=== PATIENT | female | born 1995 | race African-American/Black ===

== ENCOUNTER 2020-01-10 20:47 | Emergency (ER) | payer SELFPAY ==
--- OUTSIDE RECORDS SUMMARY | 2020-01-10 20:49 | XMS REPORT ---
:1995 Author Organization [facility] t Address [address] [place] [address] Care Team Providers Name Role Phone Jimmy GEORGE, Braulio Attending Clinician Problems This patient has no known problems. Allergies, Adverse Reactions, Alerts This patient has no known allergies or adverse reactions. Medications This patient has no known medications. Procedures This patient has no known procedures. Encounters Start End Encounter Admission Attending Care Care Encounter Source Date/Time Date/Time Type Type Clinicians Facility Department ID 2019-04-25 2019-04-25 Routine Josephine Marquez [facility] [id number] 14:09:06 14:51:18 Braulio Monroe [id number] Visit [place] [id number] Ava [phone] replaced by [facility] 134 [facility] Results This patient has no known results.
[2020-01-10 21:48] LABS: Urine Blood 3+ (NEG); Urine Glucose NEGATIVE (NEG); Urine Protein 1+ (NEG); Urine Specific Gravity >1.030 (1.005-1.030); Urine pH 6.5 (5.0-7.0)
[2020-01-10 22:55] VITALS: BP 134/81; TEMP 96.5; O2SAT 100
--- NOTE | 2020-01-16 13:49 | ER ---
Nurse's Notes [facility] Name: Riri Carpio Age: 24 yrs Sex: Female : 1995 Arrival Date: 01/10/2020 Time: 20:51 Bed 13 Private MD: Diagnosis: Urinary tract infection, site not specified;Acute pharyngitis Presentation: 01/09 20:58 Chief complaint: Patient states: i have a sore throat and a little bit of diarrhea and mg2 burning micturition since yesterday. denies fever and cough. Coronavirus screen: Proceed with normal triage. Patient denies a cough. Patient denies shortness of breath or difficulty breathing. Patient denies measured and/or subjective temperature greater than 100.4F prior to today's visit. Patient denies travel on a cruise ship or to a country the [facility] currently lists as an affected area. Patient denies contact with known and/or suspected case of COVID-19. Ebola Screen: No symptoms or risks identified at this time. Initial Sepsis Screen: Does the patient meet any 2 criteria? No. Patient's initial sepsis screen is negative. Does the patient have a suspected source of infection? No. Patient's initial sepsis screen is negative. Risk Assessment: Do you want to hurt yourself or someone else? Patient reports no desire to harm self or others. Onset of symptoms was January 10, 2020. 20:58 Method Of Arrival: Ambulatory mg2 20:58 Acuity: NEYMAR 4 mg2 Historical: - Allergies: 21:01 NKDA; mg2 - Home Meds: 21:01 None [Active]; mg2 - PMHx: 21:01 stomach ulcer; mg2 - PSHx: 21:01 None; mg2 - Immunization history:: Flu vaccine is up to date. - Social history:: Smoking status: Patient reports the use of cigarette tobacco products, denies chronic smoking, but will smoke occasionally, Patient uses alcohol, occasionally. Patient/guardian denies using street drugs, IV drugs. Screenin:40 Abuse screen: Denies threats or abuse. Nutritional screening: No deficits noted. jb4 Tuberculosis screening: No symptoms or risk factors identified. Fall Risk None identified. Assessment: 21:40 General: Appears in no apparent distress. comfortable, Behavior is calm, cooperative, jb4 appropriate for age. Pain: Complains of pain in Throat Pain does not radiate. Pain currently is 5 out of 10 on a pain scale. Quality of pain is described as Scratchy. Neuro: Level of Consciousness is awake, alert, obeys commands, Oriented to person, place, time, situation. Cardiovascular: Patient's skin is warm and dry. Respiratory: Airway is patent Respiratory effort is even, unlabored, Respiratory pattern is regular, symmetrical. GI: No signs and/or symptoms were reported involving the gastrointestinal system. : No signs and/or symptoms were reported regarding the genitourinary system. EENT: Throat is clear with gag reflex present. Derm: Skin is intact, Skin is dry, Skin is normal, Skin temperature is warm. 22:35 Reassessment: Patient appears in no apparent distress at this time. Patient and/or jb4 family updated on plan of care and expected duration. Pain level reassessed. Patient is alert, oriented x 3, equal unlabored respirations, skin warm/dry/pink. Pt verbalized understanding of d/c and follow up instructions. Denies questions or concerns. Ambulated out of ED with steady gait. Vital Signs: 20:58 BP 134 / 81; Pulse 87; Resp 18; Temp 96.5; Pulse Ox 100% on R/A; Weight 117.03 kg; mg2 Height 5 ft. 7 in. (170.18 cm); Pain 6/10; 20:58 Body Mass Index 40.41 (117.03 kg, 170.18 cm) mg2 ED Course: 20:51 Patient arrived in ED. cl3 21:00 Triage completed. mg2 21:01 Arm band placed on. mg2 21:15 Strep swab sent to lab. mg2 21:33 Oleg Armenta NP is PHCP. pm1 21:33 Lilia Leon MD is Attending Physician. pm1 21:40 Patient has correct armband on for positive identification. Bed in low position. Call jb4 light in reach. Side rails up X 1. 21:45 Augustine Solorio, LUCI is Primary Nurse. jb4 22:35 No provider procedures requiring assistance completed. Patient did not have IV access jb4 during this emergency room visit. Administered Medications: No medications were administered Outcome: 22:04 Discharge ordered by . pm1 22:35 Discharged to home ambulatory. jb4 22:35 Condition: stable 22:35 Discharge instructions given to patient, Instructed on discharge instructions, follow up and referral plans. medication usage, Demonstrated understanding of instructions, follow-up care, medications, Prescriptions given X 2. 22:37 Patient left the ED. jb4 Signatures: Oleg Armenta NP SCHOOL OFFICE ASSISTANT pm1 Augustine Solorio, RN RN jb4 Jose Medellin RN RN mg2 Chinmay Mark cl3 Corrections: (The following items were deleted from the chart) 21:01 20:58 Pulse 87bpm; Resp 18bpm; Pulse Ox 100% RA; Temp 96.5F; 117.03 kg; Height 5 ft. 7 mg2 in.; BMI: 40.4; Pain 6/10; mg2 21:02 20:58 Chief complaint: Patient states: i have a sore throat and a little bit of mg2 diarrhea since yesterday. denies fever and cough. mg2
--- NOTE | 2020-01-16 13:50 | EDPHYS ---
Physician Documentation [facility] Name: Riri Carpio Age: 24 yrs Sex: Female : 1995 Arrival Date: 01/10/2020 Time: 20:51 Bed 13 Private MD: ED Physician Lilia Leon HPI: 01/09 21:54 This 24 yrs old Black Female presents to ER via Ambulatory with complaints of Sore pm1 Throat, Pain With Urination. 21:54 The patient presents with sore throat. The patient describes throat pain as constant, pm1 raw, scratchy. Onset: The symptoms/episode began/occurred 2 day(s) ago. Severity of symptoms: in the emergency department the symptoms are unchanged. Modifying factors: The symptoms are alleviated by nothing, the symptoms are aggravated by swallowing, Patient's oral intake status: good. Associated signs and symptoms: Pertinent positives: burning with urination since yesterday. The patient has experienced similar episodes in the past, a few times. The patient has not recently seen a physician. Historical: - Allergies: 21:01 NKDA; mg2 - Home Meds: 21:01 None [Active]; mg2 - PMHx: 21:01 stomach ulcer; mg2 - PSHx: 21:01 None; mg2 - Immunization history:: Flu vaccine is up to date. - Social history:: Smoking status: Patient reports the use of cigarette tobacco products, denies chronic smoking, but will smoke occasionally, Patient uses alcohol, occasionally. Patient/guardian denies using street drugs, IV drugs. ROS: 21:54 Constitutional: Negative for fever, chills, and weight loss, Neck: Negative for injury, pm1 pain, and swelling, Cardiovascular: Negative for chest pain, palpitations, and edema, Respiratory: Negative for shortness of breath, cough, wheezing, and pleuritic chest pain, Abdomen/GI: Negative for abdominal pain, nausea, vomiting, diarrhea, and constipation, Back: Negative for injury and pain. 21:54 MS/Extremity: Negative for injury and deformity. 21:54 Skin: Negative for injury, rash, and discoloration, Neuro: Negative for headache, weakness, numbness, tingling, and seizure. 21:54 ENT: Positive for sore throat, Negative for ear pain, dental pain, difficulty swallowing, difficulty handling secretions, hoarseness. 21:54 : Positive for burning with urination, Negative for flank pain. Exam: 21:54 Constitutional: This is a well developed, well nourished patient who is awake, alert, pm1 and in no acute distress. Head/Face: Normocephalic, atraumatic. Neck: Trachea midline, no thyromegaly or masses palpated, and no cervical lymphadenopathy. Supple, full range of motion without nuchal rigidity, or vertebral point tenderness. No Meningismus. Chest/axilla: Normal chest wall appearance and motion. Nontender with no deformity. No lesions are appreciated. Cardiovascular: Regular rate and rhythm with a normal S1 and S2. No gallops, murmurs, or rubs. Normal PMI, no JVD. No pulse deficits. Respiratory: Lungs have equal breath sounds bilaterally, clear to auscultation and percussion. No rales, rhonchi or wheezes noted. No increased work of breathing, no retractions or nasal flaring. 21:54 Abdomen/GI: Soft, non-tender, with normal bowel sounds. No distension or tympany. No guarding or rebound. No evidence of tenderness throughout. Back: No spinal tenderness. No costovertebral tenderness. Full range of motion. Skin: Warm, dry with normal turgor. Normal color with no rashes, no lesions, and no evidence of cellulitis. MS/ Extremity: Pulses equal, no cyanosis. Neurovascular intact. Full, normal range of motion. 21:54 ENT: External ear(s): are unremarkable, Ear canal(s): are normal, TM's: are normal, Posterior pharynx: Tonsils: bilaterally enlarged, with erythema, no exudate, no ulcerations, erythema, that is mild, peritonsillar mass, is not appreciated. 21:54 Neuro: Orientation: is normal, Motor: is normal, moves all fours. Vital Signs: 20:58 BP 134 / 81; Pulse 87; Resp 18; Temp 96.5; Pulse Ox 100% on R/A; Weight 117.03 kg; mg2 Height 5 ft. 7 in. (170.18 cm); Pain 6/10; 20:58 Body Mass Index 40.41 (117.03 kg, 170.18 cm) mg2 MDM: 21:50 Patient medically screened. pm1 22:03 Data reviewed: vital signs. Data interpreted: Pulse oximetry: on room air is 100 %. pm1 Interpretation: normal. Counseling: I had a detailed discussion with the patient and/or guardian regarding: the historical points, exam findings, and any diagnostic results supporting the discharge/admit diagnosis, lab results, the need for outpatient follow up, to return to the emergency department if symptoms worsen or persist or if there are any questions or concerns that arise at home. 01/09 21:02 Order name: Strep; Complete Time: 21:51 mg2 01/09 21:33 Order name: Throat Culture EDDE 01/09 21:02 Order name: Urine Dipstick-Ancillary (obtain specimen); Complete Time: 21:37 mg2 01/09 21:40 Order name: Urine Dipstick--Ancillary (enter results); Complete Time: 21:51 ar5 01/09 21:40 Order name: Urine --Ancillary (enter results); Complete Time: 21:51 ar5 Administered Medications: No medications were administered Disposition: 01/10 06:50 Co-signature as Attending Physician, Lilia Leon MD. ma2 Disposition: 01/10/20 22:04 Discharged to Home. Impression: Urinary tract infection, site not specified, Acute pharyngitis. - Condition is Stable. - Discharge Instructions: Pharyngitis, Urinary Tract Infection, Adult. - Prescriptions for Bactrim DS 800- 160 mg Oral Tablet - take 1 tablet by ORAL route every 12 hours for 10 days; 20 tablet. Pyridium 200 mg Oral Tablet - take 1 tablet by ORAL route every 8 hours for 3 days; 9 tablet. - Work release form, Medication Reconciliation Form, Thank You Letter, Antibiotic Education, Prescription Opioid Use form. - Follow up: Emergency Department; When: As needed; Reason: Worsening of condition. Follow up: Private Physician; When: 2 - 3 days; Reason: Recheck today's complaints, Continuance of care, Re-evaluation by your physician. - Problem is new. - Symptoms have improved. Signatures: Dispatcher [employer] EDDE Oleg Armenta, CREDIT CARD SPECIALIST CREDIT CARD SPECIALIST pm1 Augustine Solorio, LUCI RN jb4 Lilia Leon MD MD ma2 Jose Medellin RN RN mg2 Corrections: (The following items were deleted from the chart) 01/09 22:05 22:04 01/10/2020 22:04 Discharged to Home. Impression: Urinary tract infection, site pm1 not specified. Condition is Stable. Forms are Medication Reconciliation Form, Thank You Letter, Antibiotic Education, Prescription Opioid Use. Follow up: Emergency Department; When: As needed; Reason: Worsening of condition. Follow up: Private Physician; When: 2 - 3 days; Reason: Recheck today's complaints, Continuance of care, Re-evaluation by your physician. Problem is new. Symptoms have improved. pm1 22:37 22:05 01/10/2020 22:04 Discharged to Home. Impression: Urinary tract infection, site jb4 not specified; Acute pharyngitis. Condition is Stable. Discharge Instructions: Urinary Tract Infection, Adult, Pharyngitis. Prescriptions for Bactrim DS 800-160 mg Oral Tablet - take 1 tablet by ORAL route every 12 hours for 10 days; 20 tablet, Pyridium 200 mg Oral Tablet - take 1 tablet by ORAL route every 8 hours for 3 days; 9 tablet. and Forms are Medication Reconciliation Form, Thank You Letter, Antibiotic Education, Prescription Opioid Use, Work release form. Follow up: Emergency Department; When: As needed; Reason: Worsening of condition. Follow up: Private Physician; When: 2 - 3 days; Reason: Recheck today's complaints, Continuance of care, Re-evaluation by your physician. Problem is new. Symptoms have improved. pm1
== END 2020-01-10 22:37 | disposition home or self-care (01) ==
LOC: ER 20:47
DX: N39.0 Urinary tract infection, site not specified (principal); J02.9 Acute pharyngitis, unspecified; Z72.0 Tobacco use
CPT/HCPCS: 81003; 81025; 87070; 87081; 99283

== ENCOUNTER 2020-01-19 19:42 | Emergency (ER) | payer SELFPAY ==
--- OUTSIDE RECORDS SUMMARY | 2020-01-19 19:44 | XMS REPORT | Continuity of Care Document ---
:1995 Author Organization [facility] t Address [address] [place] [address] Care Team Providers Name Role Phone Jimmy [...] Department ID 2019-04-25 2019-04-25 Routine Josephine Marquez [facility] [id number] 14:09:06 14:51:18 Braulio Monroe [id number] Visit [place] [id number] Ava [phone] [facility] 134 [facility] Results This patient has no known results.
[2020-01-19 20:47] LABS: Urine Bacteria 20-50 /HPF (<20); Urine Culture Reflex Order NOT NEEDED; Urine Mucus 2+ /HPF (NONE SEEN)
[2020-01-19 20:48] LABS: Urine Specific Gravity >1.030 (1.005-1.030)
[2020-01-19 20:50] LABS: Urine Blood 2+ (NEG); Urine Glucose NEGATIVE (NEG); Urine Protein 2+ (NEG); Urine Specific Gravity >1.030 (1.005-1.030); Urine pH 6.5 (5.0-7.0)
[2020-01-19 21:42] LABS: Absolute Lymphocytes (CBC) 2.5 K/uL (0.7-4.9); Basophils % 0.8 % (0-1.3); Hematocrit 38.5 % (36.0-45.0); MPV 7.7 fL (7.6-11.3); RBC Red Blood Cell Count 4.38 M/uL (3.86-4.86)
[2020-01-19 21:53] LABS: BUN Blood Urea Nitrogen 9 mg/dL (7-18); Bicarbonate 28 mmol/L (21-32); Glucose Level 91 mg/dL (74-106); Potassium 3.8 mmol/L (3.5-5.1); Sodium Level 140 mmol/L (136-145)
[2020-01-19] MEDS ORDERED: CEFTRIAXONE/SWI 1gm 1 GM/10 ML SYR ONE (22:03)
--- NOTE | 2020-01-19 23:16 | EDPHYS ---
Physician Documentation [facility] Name: Riri Carpio Age: 24 yrs Sex: Female : 1995 Arrival Date: 01/19/2020 Time: 19:44 Bed 13 Private MD: ED Physician Abilio Marquez HPI: 01/18 23:11 This 24 yrs old Black Female presents to ER via Ambulatory with complaints of Back kb Pain, Pain With Urination. 23:11 The patient complains of pain in the left flank. The pain does not radiate. Onset: The kb symptoms/episode began/occurred today. Modifying factors: The symptoms are alleviated by nothing. the symptoms are aggravated by nothing. Associated signs and symptoms: Pertinent positives: dysuria, urinary frequency, nausea, vomiting. Severity of pain: At its worst the pain was moderate in the emergency department the pain is unchanged. The patient has experienced similar episodes in the past, a few times. The patient has not recently seen a physician. Pt reports she was diagnosed with a UTI, took antibiotics and symptoms got better, but then got worse today. States she vomited once this morning. . 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 - Social history:: Smoking status: Patient denies any tobacco usage or history of. ROS: 23:08 Constitutional: Negative for fever, chills, and weight loss, Cardiovascular: Negative kb for chest pain, palpitations, and edema, Respiratory: Negative for shortness of breath, cough, wheezing, and pleuritic chest pain, Abdomen/GI: Negative for abdominal pain, nausea, vomiting, diarrhea, and constipation, MS/Extremity: Negative for injury and deformity, Skin: Negative for injury, rash, and discoloration, Neuro: Negative for headache, weakness, numbness, tingling, and seizure. 23:08 Back: Positive for flank pain, bilaterally. 23:08 : Positive for urinary symptoms, flank pain, burning with urination. Exam: 23:11 Constitutional: This is a well developed, well nourished patient who is awake, alert, kb and in no acute distress. Head/Face: Normocephalic, atraumatic. Chest/axilla: Normal chest wall appearance and motion. Nontender with no deformity. No lesions are appreciated. Cardiovascular: Regular rate and rhythm with a normal S1 and S2. No gallops, murmurs, or rubs. Normal PMI, no JVD. No pulse deficits. Respiratory: Lungs have equal breath sounds bilaterally, clear to auscultation and percussion. No rales, rhonchi or wheezes noted. No increased work of breathing, no retractions or nasal flaring. Abdomen/GI: Soft, non-tender, with normal bowel sounds. No distension or tympany. No guarding or rebound. No evidence of tenderness throughout. Skin: Warm, dry with normal turgor. Normal color with no rashes, no lesions, and no evidence of cellulitis. MS/ Extremity: Pulses equal, no cyanosis. Neurovascular intact. Full, normal range of motion. Neuro: Awake and alert, GCS 15, oriented to person, place, time, and situation. Cranial nerves II-XII grossly intact. Motor strength 5/5 in all extremities. Sensory grossly intact. Cerebellar exam normal. Normal gait. 23:11 Back: CVA tenderness, that is moderate, is noted on the left. Vital Signs: 20:04 BP 123 / 86; Pulse 68; Resp 16; Temp 98.4; Pulse Ox 100% on R/A; Weight 97.52 kg; iw Height 5 ft. 7 in. (170.18 cm); Pain 7/10; 22:05 BP 125 / 81; Pulse 70; Resp 16; Temp 97.3(TE); Pulse Ox 100% ; Pain 0/10; ao 23:58 BP 124 / 82; Pulse 65; Resp 16; Temp 98.3(TE); Pulse Ox 98% ; Pain 6/10; ao 20:04 Body Mass Index 33.67 (97.52 kg, 170.18 cm) iw MDM: 20:32 Patient medically screened. kb 23:10 Data reviewed: vital signs, nurses notes. Data interpreted: Pulse oximetry: on room air kb is 100 %. Interpretation: normal. Counseling: I had a detailed discussion with the patient and/or guardian regarding: the historical points, exam findings, and any diagnostic results supporting the discharge/admit diagnosis, lab results, radiology results, the need for outpatient follow up, a family practitioner, to return to the emergency department if symptoms worsen or persist or if there are any questions or concerns that arise at home. 01/18 20:26 Order name: Urine Culture [facility] 01/18 20:26 Order name: Urine Microscopic Only; Complete Time: 20:54 va5 01/18 20:26 Order name: Urine Dipstick--Ancillary (enter results); Complete Time: 20:54 [facility] 01/18 20:36 Order name: Urine --Ancillary (enter results); Complete Time: 20:54 [facility] 01/18 20:55 Order name: CBC with Diff; Complete Time: 21:47 kb 01/18 20:27 Order name: Urine Dipstick-Ancillary (obtain specimen); Complete Time: 20:27 ca1 01/18 20:27 Order name: Urine Test (obtain specimen); Complete Time: 20:27 ca1 01/18 20:55 Order name: Basic Metabolic Panel; Complete Time: 22:03 kb 01/18 20:55 Order name: IV Start; Complete Time: 21:51 kb 01/18 21:47 Order name: CT Abd/Pelvis - IV Contrast Only kb Administered Medications: 22:00 Drug: Rocephin 1 grams Route: IV; Rate: calculated rate; Site: right antecubital; ao 23:57 Follow up: Response: No adverse reaction; IV Status: Completed infusion; IV Intake: 10mlao 23:57 Drug: Flynn (7.5 mg-325 mg) 1 tabs Route: PO; ao 23:57 Follow up: Response: Medication administered at discharge. ao Disposition: 01/19 01:53 Co-signature as Attending Physician, Abilio Marquez MD. pkl Disposition: 01/19/20 23:15 Discharged to Home. Impression: Urinary tract infection, site not specified. - Condition is Stable. - Discharge Instructions: Urinary Tract Infection, Adult, [id number]. - Prescriptions for Macrobid 100 mg Oral Capsule - take 1 capsule by ORAL route every 12 hours for 10 days; 20 capsule. Diclofenac Sodium 75 mg Oral Tablet, Delayed Release (E.C.) - take 1 tablet by ORAL route 2 times per day As needed; 30 tablet. - Medication Reconciliation Form, Thank You Letter, Antibiotic Education, Prescription Opioid Use, Work release form form. - Follow up: Emergency Department; When: As needed; Reason: Worsening of condition. Follow up: Private Physician; When: 2 - 3 days; Reason: Recheck today's complaints, Continuance of care, Re-evaluation by your physician. Signatures: Dispatcher [employer] [facility] RomelVijayGia, Abilio Nelson MD MD pkl Williams, Irene, RN RN iw Andre Casarez RN RN ao Devorah, LUCI Acosta RN ca1 Corrections: (The following items were deleted from the chart) 01/18 20:50 20:33 UA MICROSCOPIC+U.LAB.BRZ ordered. [facility] 23:58 23:15 01/19/2020 23:15 Discharged to Home. Impression: Urinary tract infection, site ao not specified. Condition is Stable. Forms are Medication Reconciliation Form, Thank You Letter, Antibiotic Education, Prescription Opioid Use. Follow up: Emergency Department; When: As needed; Reason: Worsening of condition. Follow up: Private Physician; When: 2 - 3 days; Reason: Recheck today's complaints, Continuance of care, Re-evaluation by your physician. kb
--- NOTE | 2020-01-19 23:16 | ER ---
Nurse's Notes [facility] Name: Riri Carpio Age: 24 yrs Sex: Female : 1995 Arrival Date: 01/19/2020 Time: 19:44 Bed 13 Private MD: Diagnosis: Urinary tract infection, site not specified Presentation: 01/18 20:04 Chief complaint: Patient states: previous hx of stomach ulcers, threw up at work today iw and was sent home, is also having back pain and stinging pain with urination last night, was recently diagnosed with UTI and put on abx , also feels light headed when she wakes up. Coronavirus screen: Proceed with normal triage. Patient denies a cough. Patient denies shortness of breath or difficulty breathing. Patient denies measured and/or subjective temperature greater than 100.4F prior to today's visit. Patient denies travel on a cruise ship or to a country the [facility] currently lists as an affected area. Patient denies contact with known and/or suspected case of COVID-19. Ebola Screen: Patient negative for fever greater than or equal to 101.5 degrees Fahrenheit, and additional compatible Ebola Virus Disease symptoms Patient denies exposure to infectious person. Patient denies travel to an Ebola-affected area in the 21 days before illness onset. No symptoms or risks identified at this time. Initial Sepsis Screen: Does the patient meet any 2 criteria? No. Patient's initial sepsis screen is negative. Does the patient have a suspected source of infection? No. Patient's initial sepsis screen is negative. Risk Assessment: Do you want to hurt yourself or someone else? Patient reports no desire to harm self or others. Onset of symptoms was January 18, 2020. 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 - Social history:: Smoking status: Patient denies any tobacco usage or history of. Screenin:52 Abuse screen: Denies threats or abuse. Denies injuries from another. Nutritional ao screening: No deficits noted. Tuberculosis screening: No symptoms or risk factors identified. Fall Risk None identified. Assessment: 21:20 General: Appears in no apparent distress. comfortable, Behavior is calm, cooperative, ao appropriate for age. Pain: Complains of pain in back. Neuro: Level of Consciousness is awake, alert, obeys commands, Oriented to person, place, time, situation, Appropriate for age Moves all extremities. Full function Speech is normal. Cardiovascular: Capillary refill < 3 seconds Patient's skin is warm and dry. Respiratory: Airway is patent Respiratory pattern is regular, symmetrical. GI: Abdomen is round non-distended. : No signs and/or symptoms were reported regarding the genitourinary system. EENT: No signs and/or symptoms were reported regarding the EENT system. Derm: No signs and/or symptoms reported regarding the dermatologic system. Musculoskeletal: Circulation, motion, and sensation intact. Range of motion: intact in all extremities. 23:35 Reassessment: Patient appears in no apparent distress at this time. DC intructions ao given to patient. Pt agree with POC and to follow up with POC. 23:58 Reassessment: Patient appears in no apparent distress at this time. ao Vital Signs: 20:04 BP 123 / 86; Pulse 68; Resp 16; Temp 98.4; Pulse Ox 100% on R/A; Weight 97.52 kg; iw Height 5 ft. 7 in. (170.18 cm); Pain 7/10; 22:05 BP 125 / 81; Pulse 70; Resp 16; Temp 97.3(TE); Pulse Ox 100% ; Pain 0/10; ao 23:58 BP 124 / 82; Pulse 65; Resp 16; Temp 98.3(TE); Pulse Ox 98% ; Pain 6/10; ao 20:04 Body Mass Index 33.67 (97.52 kg, 170.18 cm) iw ED Course: 19:44 Patient arrived in ED. ds1 20:06 Triage completed. iw 20:06 Arm band placed on. iw 20:32 Gia Urena FNP-C is PHCP. kb 20:32 Abilio Marquez MD is Attending Physician. kb 21:25 Andre Casarez RN is Primary Nurse. ao 21:40 Inserted saline lock: 20 gauge in right antecubital area, using aseptic technique. ao Blood collected. 21:52 Patient has correct armband on for positive identification. Pulse ox on. NIBP on. ao 22:42 CT Abd/Pelvis - IV Contrast Only In Process Unspecified. EDMS 23:35 No provider procedures requiring assistance completed. IV discontinued, intact, ao bleeding controlled, No redness/swelling at site. Pressure dressing applied. Administered Medications: 22:00 Drug: Rocephin 1 grams Route: IV; Rate: calculated rate; Site: right antecubital; ao 23:57 Follow up: Response: No adverse reaction; IV Status: Completed infusion; IV Intake: 10mlao 23:57 Drug: [place] (7.5 mg-325 mg) 1 tabs Route: PO; ao 23:57 Follow up: Response: Medication administered at discharge. ao Intake: 23:57 IV: 10ml; Total: 10ml. ao Outcome: 23:15 Discharge ordered by . kb 23:35 Discharged to home ambulatory. ao 23:35 Condition: stable 23:35 Discharge instructions given to patient, Instructed on discharge instructions, follow up and referral plans. the need for admit, Demonstrated understanding of instructions, follow-up care, medications, Prescriptions given X 1. 23:58 Patient left the ED. ao Signatures: Dispatcher [employer] EDMS Gia Urena, YASMINE-C FERMENTATION ENGINEER-Simona Huber ds1 Noemi Duke, RN RN iw Andre Casarez RN RN ao
[2020-01-19] MEDS ORDERED: HYDROCODONE/APAP 7.5/325 MG TAB ONE (23:57)
[2020-01-20 00:35] VITALS: BP 124/82; TEMP 98.3; O2SAT 98
--- NOTE | 2020-01-20 21:11 | RAD REPORT ---
EXAM DESCRIPTION: CT Abdomen and Pelvis With Intravenous Contrast CLINICAL HISTORY: The patient is 24 years old and is Female; r/o pyelo back pain and vomiting TECHNIQUE: Axial computed tomography images of the abdomen and pelvis with intravenous contrast. S agittal and coronal reformatted images were created and reviewed. This CT exam was performed using one or more of the following dose reduction techniques: automated exposure control, adjustment of t he mA and/or kV according to patient size, and/or use of iterative reconstruction technique. COMPARISON: No relevant prior studies available. FINDINGS: LUNG BASES: Unremarkable. No mass. No consolidation. ABDOMEN: LIVER: Unremarkable. No mass. GALLBLADDER AND BILE DUCTS: No calcified stones. No ductal dilation. PANCREAS: No ductal dilation. No mass. SPLEEN: Unremarkable. ADRENALS: Unremarkable. No mass. KIDNEYS AND URETERS: Unremarkable. The kidneys enhance symmetrically. No obstructing renal or ure teral calculus is seen. No hydronephrosis or hydroureter. No perinephric fluid or stranding. STOMACH AND BOWEL: The stomach is minimally distended. The small bowel is normal in caliber. Sto ol is present throughout colon. There is no mucosal thickening or evidence of bowel obstruction. PELVIS: APPENDIX: The appendix is normal in caliber without surrounding inflammation. BLADDER: The bladder is nearly empty. REPRODUCTIVE: Unremarkable as visualized. ABDOMEN and PELVIS: INTRAPERITONEAL SPACE: Unremarkable. No free air. No significant fluid collection. BONES/JOINTS: No acute fracture. SOFT TISSUES: The soft tissues are normal. VASCULATURE: Unremarkable. No abdominal aortic aneurysm. LYMPH NODES: Unremarkable. No enlarged lymph nodes. IMPRESSION: No acute findings on this contrasted CT of the abdomen and pelvis to explain the patient 's symptoms. Electronically signed by: Adeola Wolf MD 01/19/2020 10:49 PM CDT Due to temporary technical issues with the PACS/Fluency reporting system, reports are being signed by the in house radiologist without review a sa courtesy to ensure prompt reporting. The interpreting r adiologist is fully responsible for the content of the report.
== END 2020-01-19 23:58 | disposition home or self-care (01) ==
LOC: ER 19:42
DX: N39.0 Urinary tract infection, site not specified (principal)
CPT/HCPCS: 36415; 74177; 80048; 81003; 81015; 81025; 85025; 87086; 87088; 96365; 96366; 99284; J0696